=== PATIENT | male | born 1995 | race Caucasian/White ===

== ENCOUNTER 2021-08-13 17:40 | Emergency (ER) | payer SELFPAY ==
--- NOTE | 2021-08-13 19:42 | RAD REPORT ---
EXAM DESCRIPTION: RAD - Hand Left 3 View - 08/13/2021 7:24 pm CLINICAL HISTORY: left 5th finger;Deformity;Pain COMPARISON: No comparisons FINDINGS/IMPRESSION: No displaced fracture identified. Mild cortical regularity involving the fifth distal phalanx along the metaphysis could represent a nondisplaced fracture. Correlate with site of p ain.
--- NOTE | 2021-08-13 20:07 | ER ---
Nurse's Notes [facility] Name: Amado Villarreal Age: 26 yrs Sex: Male : 1995 Arrival Date: 08/13/2021 Time: 17:58 Bed 12 Private MD: Diagnosis: Abrasion of left little finger;Dislocation of proximal interphalangeal joint of left little finger, initial encounter-reduced Presentation: 08/13 18:56 Chief complaint: Patient states: pt slipped and fell onto Left pinky about an hour ago. vg1 Coronavirus screen: Vaccine status: Patient reports being unvaccinated. Client denies travel out of the [place] in the last 14 days. Ebola Screen: Patient negative for fever greater than or equal to 101.5 degrees Fahrenheit, and additional compatible Ebola Virus Disease symptoms. Initial Sepsis Screen: Does the patient meet any 2 criteria? No. Patient's initial sepsis screen is negative. Does the patient have a suspected source of infection? No. Patient's initial sepsis screen is negative. Risk Assessment: Do you want to hurt yourself or someone else? Patient reports no desire to harm self or others. Onset of symptoms was August 13, 2021. 18:56 Method Of Arrival: Ambulatory vg1 18:56 Acuity: BYRON 4 vg1 Triage Assessment: 18:57 General: Appears in no apparent distress. comfortable, Behavior is calm, cooperative. vg1 Pain: Complains of pain in PIP of left little finger. Musculoskeletal: Circulation, motion, and sensation intact. Historical: - Allergies: 18:57 No Known Allergies; vg1 - Home Meds: 18:57 None [Active]; vg1 - PMHx: 18:57 None; vg1 - PSHx: 18:57 None; vg1 - Immunization history:: Client reports having NOT received the Covid vaccine. - Social history:: Smoking status: Patient denies any tobacco usage or history of. Screenin:40 Abuse screen: Denies threats or abuse. Denies injuries from another. Nutritional lp1 screening: No deficits noted. Tuberculosis screening: No symptoms or risk factors identified. Fall Risk None identified. Assessment: 20:40 General: Appears in no apparent distress. Behavior is appropriate for age. Pain: Denies lp1 pain. Neuro: Level of Consciousness is awake, alert, obeys commands, Oriented to person, place, time, situation. Cardiovascular: Patient's skin is warm and dry. Respiratory: No deficits noted. GI: No signs and/or symptoms were reported involving the gastrointestinal system. : No signs and/or symptoms were reported regarding the genitourinary system. EENT: No signs and/or symptoms were reported regarding the EENT system. Derm: Wound noted Other: small abrasion to left little finger with swelling. Musculoskeletal: Circulation, motion, and sensation intact. Swelling present in left little finger. Vital Signs: 18:56 BP 118 / 65; Pulse 60; Resp 16; Temp 98.8; Pulse Ox 100% ; Weight 70.31 kg; Height 6 vg1 ft. 0 in. (182.88 cm); Pain 0/10; 18:56 Body Mass Index 21.02 (70.31 kg, 182.88 cm) vg1 ED Course: 17:58 Patient arrived in ED. as 18:40 Clayton Foy NP is PHCP. pm1 18:41 Franky Lewis DO is Attending Physician. pm1 18:57 Triage completed. vg1 18:57 Arm band placed on. vg1 19:24 Hand Left 3 View XRAY In Process Unspecified. EDMS 20:30 Wound care: to abrasion, located on left little finger was cleaned with Hibiclens. lp1 20:30 splint applied to left little finger. lp1 20:40 Patient has correct armband on for positive identification. lp1 20:40 No provider procedures requiring assistance completed. Patient did not have IV access lp1 during this emergency room visit. Administered Medications: 18:58 Not Given (Patient Refused): Ibuprofen 600 mg PO once vg1 Outcome: 20:07 Discharge ordered by . pm1 20:40 Discharged to home ambulatory. lp1 20:40 Condition: good 20:40 Discharge instructions given to patient, Instructed on discharge instructions, follow up and referral plans. medication usage, wound care, Demonstrated understanding of instructions, follow-up care, medications, wound care, Prescriptions given X 1. 20:44 Patient left the ED. lp1 Signatures: Dispatcher [employer] EDMS Ghazal Nuñez Laura, RN RN lp1 Clayton Foy NP RISK MANAGEMENT MANAGER pm1 Angeles Gray RN RN 1
--- NOTE | 2021-08-13 20:08 | EDPHYS ---
Physician Documentation [facility] Name: Amado Villarreal Age: 26 yrs Sex: Male : 1995 Arrival Date: 08/13/2021 Time: 17:58 Bed 12 Private MD: ED Physician Franky Lewis HPI: 08/13 18:59 This 26 yrs old Male presents to ER via Ambulatory with complaints of Finger Injury. pm1 18:59 The patient or guardian reports deformity. The complaints affect the PIP of left little pm1 finger. Context: [place] resulted [place] Patient fell and supported fall with his left hand resulting in deformity to left fifth finger. Onset: The symptoms/episode began/occurred today. Modifying factors: The symptoms are alleviated by nothing, the symptoms are aggravated by nothing. Associated signs and symptoms: Pertinent negatives: cyanosis distally, decreased sensation distally, numbness distally, tingling distally. Severity of symptoms: in the emergency department the symptoms are unchanged. The patient has not experienced similar symptoms in the past. The patient has not recently seen a physician. Patient attempted to self reduce it but was unsuccessful. Historical: - Allergies: 18:57 No Known Allergies; vg1 - Home Meds: 18:57 None [Active]; vg1 - PMHx: 18:57 None; vg1 - PSHx: 18:57 None; vg1 - Immunization history:: Client reports having NOT received the Covid vaccine. - Social history:: Smoking status: Patient denies any tobacco usage or history of. ROS: 18:59 Constitutional: Negative for fever, chills, and weight loss, Cardiovascular: Negative pm1 for chest pain, palpitations, and edema, Respiratory: Negative for shortness of breath, cough, wheezing, and pleuritic chest pain, Abdomen/GI: Negative for abdominal pain, nausea, vomiting, diarrhea, and constipation. 18:59 Neuro: Negative for headache, weakness, numbness, tingling, and seizure. 18:59 MS/extremity: Positive for injury or acute deformity, abrasion, of the PIP of left little finger. 18:59 Skin: Positive for abrasion(s), of the PIP of left little finger. 18:59 All other systems are negative. Exam: 18:59 Constitutional: This is a well developed, well nourished patient who is awake, alert, pm1 and in no acute distress. Head/Face: Normocephalic, atraumatic. 18:59 Neuro: Awake and alert, GCS 15, oriented to person, place, time, and situation. Cranial nerves II-XII grossly intact. Motor strength 5/5 in all extremities. Sensory grossly intact. Cerebellar exam normal. Normal gait. 18:59 Cardiovascular: Exam negative for acute changes, Rate: normal, Rhythm: regular, Pulses: no pulse deficits are appreciated. 18:59 Respiratory: Exam negative for acute changes, respiratory distress, shortness of breath. 18:59 Musculoskeletal/extremity: Extremities: grossly normal except: noted in the PIP of left little finger: deformity. 18:59 Skin: Appearance: normal except for affected area, injury, abrasion(s), very small abrasion noted, of the PIP of left little finger. Vital Signs: 18:56 BP 118 / 65; Pulse 60; Resp 16; Temp 98.8; Pulse Ox 100% ; Weight 70.31 kg; Height 6 vg1 ft. 0 in. (182.88 cm); Pain 0/10; 18:56 Body Mass Index 21.02 (70.31 kg, 182.88 cm) vg1 Procedures: 18:55 Reduction: of the PIP of left little finger, using traction, Patient tolerated well. pm1 MDM: 18:59 Data reviewed: vital signs. Data interpreted: Pulse oximetry: on room air is 100 %. pm1 Interpretation: normal. 19:15 Patient medically screened. pm1 20:04 ED course: No tenderness or swelling present to DIP and distal phalanx of left 5th pm1 finger. Will splint finger for support. Patient with full range of motion present to left 5th finger. Patient with small skin injury, abrasion to palmar surface of PIP while salt water fishing. Will prescribe doxycycline. 20:04 Counseling: I had a detailed discussion with the patient and/or guardian regarding: the pm1 historical points, exam findings, and any diagnostic results supporting the discharge/admit diagnosis, radiology results, the need for outpatient follow up, to return to the emergency department if symptoms worsen or persist or if there are any questions or concerns that arise at home. 20:08 ED course: Patient reports that tetanus up to date. Less than 5 years. pm1 08/13 18:57 Order name: Hand Left 3 View XRAY; Complete Time: 19:48 pm1 08/13 19:15 Order name: Wound Care; Complete Time: 20:44 pm1 08/13 19:49 Order name: Finger Splint; Complete Time: 20:44 pm1 Administered Medications: 18:58 Not Given (Patient Refused): Ibuprofen 600 mg PO once vg1 Disposition: 08/14 02:16 Co-signature as Attending PhysicianFranky DO I agree with the assessment and ms3 plan of care. Disposition Summary: 08/13/21 20:07 Discharge Ordered Location: Home pm1 Problem: new pm1 Symptoms: have improved pm1 Condition: Stable pm1 Diagnosis - Abrasion of left little finger pm1 - Dislocation of proximal interphalangeal joint of left little finger, initial pm1 encounter - reduced Followup: pm1 - With: Emergency Department - When: As needed - Reason: Worsening of condition Followup: pm1 - With: Private Physician - When: 2 - 3 days - Reason: Recheck today's complaints, Continuance of care, Re-evaluation by your physician Discharge Instructions: - Discharge Summary Sheet pm1 - Cast or Splint Care, Adult pm1 - Finger or Thumb Dislocation pm1 Forms: - Medication Reconciliation Form pm1 - Thank You Letter pm1 - Antibiotic Education pm1 - Prescription Opioid Use pm1 Prescriptions: - Doxycycline Hyclate 100 mg Oral Tablet - take 1 tablet by ORAL route every 12 hours; 20 tablet; Refills: 0, Product pm1 Selection Permitted Signatures: Dispatcher [employer] Clayton Chavez NP DEBT COLLECTION SPECIALIST pm1 Angeles Gray RN RN vg1 Franky Lewis DO DO ms3
[2021-08-13 20:56] VITALS: BP 118/65; TEMP 98.8; O2SAT 100
== END 2021-08-13 20:44 | disposition home or self-care (01) ==
LOC: ER 17:40
PROC: 0RSXXZZ Reposition Left Finger Phalangeal Joint, External Approach (ICD-10-PCS; principal; 2021-08-13)
DX: S63.287A Dislocation of proximal interphalangeal joint of left little finger, initial encounter (principal); W19.XXXA Unspecified fall, initial encounter; Y92.832 Beach as the place of occurrence of the external cause
CPT/HCPCS: 99284